=== PATIENT | female | born 1985 | race Two or more races ===

== ENCOUNTER 2023-06-27 17:44 | Emergency (ER) | payer OTHER ==
[~2023-06-27] VITALS: Ht 160 cm; Wt 61.4 kg
[2023-06-27 17:50] VITALS: TEMP 97.9
[2023-06-27] MEDS ORDERED: IBUPROFEN 600 MG TABLET PO ONE (19:00)
[2023-06-27] MEDS ORDERED: ACETAMINOPHEN/CODEINE 300-30 MG TABLET PO ONE (19:00)
[2023-06-27] MEDS ORDERED: METH-812 PO (21:26)
[2023-06-27] MEDS ORDERED: ACET-2080 PO (21:26)
[2023-06-27] MEDS ORDERED: IBUP-1554 PO (21:26)
[2023-06-27 21:35] VITALS: BP 140/92; PULSE 97; RESP 14
== END 2023-06-27 23:12 | disposition home or self-care (01) ==
LOC: EMS 17:45
DX: S13.4XXA Sprain of ligaments of cervical spine, initial encounter (principal); S39.012A Strain of muscle, fascia and tendon of lower back, initial encounter; V89.2XXA Person injured in unspecified motor-vehicle accident, traffic, initial encounter; Y93.89 Activity, other specified; Y92.89 Other specified places as the place of occurrence of the external cause; Y99.8 Other external cause status
CPT/HCPCS: 72040; 72070; 72100; 99284; Z7502; Z7610